=== PATIENT | female | born 1965 | race Caucasian/White ===

== ENCOUNTER 2025-07-10 11:07 | Outpatient (CLI) | payer OTHER, SELFPAY ==
--- OUTSIDE RECORDS SUMMARY | 2025-07-10 11:22 | XMS_ITS | Encounter Summary ---
Author Organization [facility]thcare Address [address] [place] [address] Care Team Providers Care Ob Gyn Physician Assistant Name Role Phone Marine Shoemaker MD Primary Care Provider [phone] [phone] Reason for Visit * Auth/Cert (Routine) Specialty Diagnoses / Procedures Referred By Rafal vail Referred To Contact Diagnoses Umbilical hernia without obstruction and without gangrene Umbilical hernia without obstruction and without gangrene [K42.9] Procedures Robotic assisted laparoscopic repair of umbilical hernia with mesh Referral ID Status Reason Start Date Expiration Date Visits Re quested Visits Authorized [id number] 1 1 Encounter Details Date Type Department Care Team (Late st Contact Info) Description 05/28/2025 Hospital Encounter [facility] [address] [place] [address] Alban Adamson MD [address] [place] [address] Social History Tobacco Use Types Packs/Day Years Used Date Smoking Tobacco: Former Cigarettes 0.5 10 Passive Smoke Exposure: Never Smokeless Tobacco: Never Alcohol Use Standard Drinks/Week Comments Yes 0 (1 standard drink = 0.6 oz pur e alcohol) occasionally PHQ-2 Answer Date Recorded PHQ-2 Score 0 01/06/2021 PRAPARE - Transportation Answer Date Re corded In the past 12 months, has l ack of transportation kept you from medical appointments or from getting medications? No 04/28 In the past 12 months, has l ack of transportation kept you from meetings, work, or from getting things needed for daily living? No 05/14/2025 Comments No Sex and Gender Information Value Date Recorded Sex Assigned at Not on file Legal Sex Female 9:28 PM CDT Gender Identity Not on file Sexual Orientation Not on file documented as of this encounter Plan of Treatment Not on file documented as of this encounter Visit Diagnoses Not on filedocumented in this encounter Care Teams Ob Gyn Physician Assistant Relationship Specialty Start Date End Date Marine Shoemaker MD [address] [place] [address], [address] [address] PCP - General Family Medicine 05/30/24 documented as of this encounter
--- OUTSIDE RECORDS SUMMARY | 2025-07-10 11:22 | XMS_ITS | Encounter Summary ---
Author Organization [facility] Address [address] [place] [address] Care Team Providers Care Supervisor Liquefaction Name Role Phone Marine Shoemaker MD Primary Care Provider [phone] [phone] Reason for Visit * Reason Comments Med Refill Encounter Details Date Type Department Care Team (Late st Contact Info) Description 08/19/2021 Refill [facility] Internal Medicine [address] [place] [address] Keyshawn Loyd MD [address] [facility] [address] [place] [address] Social History Tobacco Use Types Packs/Day Years Used Date Smoking Tobacco: Former Cigarettes 0.5 10 Smokeless Tobacco: Never Alcohol Use Standard Drinks/Week Comments Yes 0 (1 standard drink = 0.6 oz pur e alcohol) occasionally PHQ-2 Answer Date Recorded PHQ-2 Score 0 01/06/2021 Comments No Sex and Gender Information Value Date Recorded Sex Assigned at Not on file Legal Sex Female 9:28 PM CDT Gender Identity Not on file Sexual Orientation Not on file documented as of this encounter Plan of Treatment Not on file documented as of this encounter Visit Diagnoses Not on filedocumented in this encounter Care Teams Supervisor Liquefaction Relationship Specialty Start Date End Date Marine Shoemaker MD [address] [place] [address], [address] [place] [address] PCP - General Family Medicine 05/30/24 documented as of this encounter
--- OUTSIDE RECORDS SUMMARY | 2025-07-10 11:22 | XMS_ITS | Encounter Summary ---
Author Organization [facility] al[facility]care Address [address] [place] [address] Care Team Providers Care Musical String Maker Name Role Phone Marine Shoemaker MD Primary Care Provider [phone] [phone] Reason for Visit * Reason Comments Med Refill Encounter Details Date Type Department Care Team (Late st Contact Info) Description 03/27/2022 Refill [facility] [address] [place] [address] Keyshawn Loyd MD [address] [address] Dyslipidemia (Primary Dx); Anxiety Social History Tobacco Use Types Packs/Day Years [...] documented as of this encounter Visit Diagnoses Diagnosis Dyslipidemia- Primary Other and unspecified hyperlipidemia Anxiety Anxiety state, unspecified documented in this encounter Care Teams Musical String Maker Relationship Specialty Start Date End Date Marine Shoemaker MD [address] [place] [address], [address] [place] [address] PCP - General Family Medicine 05/30/24 documented as of this encounter
--- OUTSIDE RECORDS SUMMARY | 2025-07-10 11:22 | XMS_ITS | Encounter Summary ---
Author Organization [facility] al[facility]care Address [address] [place] [address] Care Team Providers Care Rn Orthopaedic Name Role Phone Marine Shoeamker MD Primary Care Provider [phone] [phone] Reason for Visit * Reason Comments Med Refill Encounter Details Date Type Department Care Team (Late st Contact Info) Description 03/27/2021 Refill [facility] Family Medicine [address] [place] [address] Keyshawn Loyd MD [address] [facility] [address] [place] [address] Social History Tobacco Use Types [...] on filedocumented in this encounter Care Teams Rn Orthopaedic Relationship Specialty Start Date End Date Marine Shoemaker MD [address] [place] [address], [address] [place] [address] PCP - General Family Medicine 05/30/24 documented as of this encounter
--- OUTSIDE RECORDS SUMMARY | 2025-07-10 11:22 | XMS_ITS | Encounter Summary ---
Author Organization [facility] al[facility]care Address [address] [place] [address] Care Team Providers Care Child Psychologist Name Role Phone Marine Shoemaker MD Primary Care Provider [phone] [phone] Encounter Details Date Type Department Care Team (Late st Contact Info) Description 05/25/2017 Orders Only [facility] Internal Medicine [address] [place] [address] Keyshawn Loyd MD [address] [facility] [address] [place] [address] Social History Tobacco Use Types Packs/Day Years Used Date Smoking Tobacco: Former Cigarettes 0.5 10 Alcohol Use Standard Drinks/Week Comments Yes 0 (1 standard drink = 0.6 oz pur e alcohol) occasionally Comments Unknown Sex and Gender Information Value Date Recorded Sex Assigned at Not on file Legal Sex Female 9:28 PM CDT Gender Identity Not on file Sexual Orientation Not on file documented as of this encounter Plan of Treatment Not on file documented as of this encounter Visit Diagnoses Not on filedocumented in this encounter Additional Health Concerns Infection Onset Date Last Indicated Resolved Time R/O COVID-19 12/10/2020 12/10/2020 12/11/2020 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
--- OUTSIDE RECORDS SUMMARY | 2025-07-10 11:22 | XMS_ITS | Encounter Summary ---
Author Organization [facility]care Address [address] [place] [address] Care Team Providers Care Economic Research Analyst Name Role Phone Marine Shoemaker MD Primary Care Provider [phone] [phone] Reason for Visit * Reason Comments Med Refill Encounter Details Date Type Department Care Team (Late st Contact Info) Description 01/08/2020 Refill [facility] Internal Medicine [address] [place] [address] Keyshawn Loyd MD [address] [facility] [address] [place] [address] Social History Tobacco Use Types Packs/Day Years Used Date Smoking Tobacco: Former Cigarettes 0.5 10 Smokeless Tobacco: Never Alcohol Use Standard Drinks/Week Comments Yes 0 (1 standard drink = 0.6 oz pur e alcohol) occasionally Comments No Sex and Gender Information Value [...] COVID-19 12/10/2020 12/10/2020 12/11/2020 11:4 6 AM 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
--- OUTSIDE RECORDS SUMMARY | 2025-07-10 11:22 | XMS_ITS | Clinical Summary ---
Author Organization [facility] Address [address] [place] [address] Care Team Providers Care Event Designer Name Role Phone Marine Shoemaker MD Primary Care Provider Marcio Coats MD Unavailable Allergies No known active allergies Medications Zepbound 15 mg/0.5 mL pen injectorIndication s:Wt Loss Mgmt, Pt with BMI 27-29 & Wt-Related Comorbidity Inject 0.5 mL (15 mg total) as directed once a week Tuesday03/16/20 25 Active venlafaxine XR (EFFEXOR-XR) 75 mg 24 hr capsuleIndications :Anxiety with Depression Take 1 capsule (75 mg total) by mouth daily before breakfast Active propranoloL (INDERAL) 40 mg tabletIndications: hypertension Take 10 mg by mouth 2 (two) times a day Active Vagifem 10 mcg tabletIndications: Atrophic Vaginitis associated with Menopause Insert 1 tablet (10 mcg total) into the vagina 2 (two) times a week Tuesday/ y 04/25/20 25 Active ipratropium (ATROVENT) 21 mcg (0.03 %) nasal spray Administer 1-2 sprays into each nostril 3 (three) times a day 180 mL 11 05/13/20 25 026 Active Additional Information Patient taking differently:1-2 spray each nostril 3 times daily,Indications: Chronic Non-Allergic Rhinitis, Informant: Self, Reported on 06/26/2025 multivitamin tabletIndications: Vitamin Deficiency Prevention Take 1 tablet by mouth daily before breakfast Active herbal drugs tablet Take 1 tablet by mouth 2 (two) times a day Viviscal BID, hair growth Active tretinoin (RETIN-A) 0.05 % creamIndications:A cne Vulgaris Apply 1 Application topically nightly Active hydroquinone 4 % cream Apply 1 Application topically as needed for irritation (skin health) Active sodium chloride (OCEAN) 0.65 % nasal spray Administer 2 sprays into each nostril 4 (four) times a day as needed for congestion 50 mL 06/26/20 25 Active HYDROcodone-acetam inophen (NORCO) 5-325 mg per tabletIndications: Pain Take 1 tablet by mouth every 6 (six) hours as needed for pain 6 tablet 06/28/20 25 Active fenofibrate (TRICOR) 54 mg tablet Take 1 tablet (54 mg total) by mouth daily before breakfast 08/31/20 24 Discontinu ed(Therapy completed) HYDROcodone-acetam inophen (NORCO) 5-325 mg per tablet TAKE 1 TABLET BY MOUTH EVERY 6 HOURS NEEDED FOR MODERATE PAIN FOR UP TO 3 DAYS 02/24/20 25 025 Discontinu ed(Therapy completed) naproxen (NAPROSYN) 500 mg tablet TAKE 1 TABLET BY MOUTH IN THE MORNING AND 1 IN THE EVENING WITH MEALS FOR 10 DAYS 02/24/20 25 025 Discontinu ed(Therapy completed) ondansetron ODT (ZOFRAN-ODT) 4 mg disintegrating tablet DISSOLVE 1 TABLET IN MOUTH EVERY 8 HOURS NEEDED FOR NAUSEA AND VOMITING UP TO 7 DAYS 02/24/20 25 025 Discontinu ed(Therapy completed) HYDROcodone-acetam inophen (NORCO) 5-325 mg per tabletIndications: Pain Take 1 tablet by mouth every 6 (six) hours as needed for pain 12 tablet 06/26/20 25 025 Discontinu ed(Reorder ) cefadroxil (DURICEF) 500 mg capsule Take 1 capsule (500 mg total) by mouth 2 (two) times a day for 3 days 6 capsule 06/26/20 25 Active Problems Problem Noted Date Diagnosed Date Encounter for cosmetic surgery 06/26/2025 History of colonic polyps 05/13/2025 Hyperlipidemia, unspecified 05/13/2025 Deviated nasal septum 04/01/2025 Nasal turbinate hypertrophy 04/01/2025 Internal nasal valve collapse, static 04/01/2025 External nasal valve collapse, static 04/01/2025 Maxillary sinusitis 01/28/2025 Abdominal wall mass of right flank 09/06/2023 Prediabetes 09/06/2023 Other specified diseases of intestine 04/18/2023 Polyp of colon 04/18/2023 Elevated fasting glucose 02/22/2023 Primary insomnia 10/05/2022 Dyslipidemia 12/25/2019 Essential hypertension 12/25/2019 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 07/20/2017 Duodenitis without bleeding 07/20/2017 Epigastric pain 07/20/2017 Benign neoplasm of cecum 06/28/2017 Benign neoplasm of descending colon 06/28/2017 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 06/28/2017 Rectal polyp 06/28/2017 Second degree hemorrhoids 06/28/2017 Chronic bilateral low back pain without sciatica 05/24/2017 Encounters Date Type Department Care Team Description 07/02/2025 2:40 PM CDT Office Visit [facility] ENT [address] [place] [address] [address] [address] Zuleyma Zeng MD 06/28/2025 Telephone [facility] ENT [address] [place] [address] Office [address] [address] Zuleyma Zeng MD 06/26/2025 8:30 AM CDT - 06/26/2025 12:25 PM CDT Surgery [facility] [address] [place] [address] Zuleyma Zeng MD SEPTOPLASTY [[id number] (CPT )] 06/26/2025 8:26 AM CDT Anesthesia Event [facility] [address] [place] [address] Da So MD Wilkens, Kelly Ann, NP 06/26/2025 6:24 AM CDT - 06/26/2025 3:23 PM CDT Hospital Encounter [facility] [address] [place] [address] Zuleyma Zeng MD External nasal valve collapse, static (Primary Dx); Internal nasal valve collapse, static; Deviated nasal septum; Nasal turbinate hypertrophy; Encounter for cosmetic surgery Discharge Disposition: Discharge to home or self care 06/25/2025 Telephone [facility] ENT [address] [facility] Medical Office Building [address] [place] [address] Zuleyma Zeng MD 05/13/2025 3:20 PM CDT Office Visit [facility] ENT [address] [facility] Medical Office Building [address] [place] [address] Maya Ward MD Nasal obstruction (Primary Dx); Chronic rhinitis; Periodontal disease; Mucous retention cyst of skin 05/13/2025 2:00 PM CDT Office Visit [facility] Otolaryngology [address] [place] [address], [address] [place] [address] Zuleyma Zeng MD Nasal obstruction (Primary Dx) 05/09/2025 12:23 PM CDT - 05/09/2025 11:59 PM CDT Hospital Encounter [facility] [address] [place] [address] Discharge Disposition: Discharge to home or self care 05/09/2025 12:21 PM CDT - 05/09/2025 11:59 PM CDT Hospital Encounter [facility] [address] [place] [address] Discharge Disposition: Discharge to home or self care from Last 3 Months Immunizations Immunization Administration Dates Next Due Influenza, Quadrivalent, Rec ombinant, Egg Free, Preservative Free, Intramuscular 09/09/2023,09/13/2022,09/16/2020 Influenza, Quadrivalent, Spl it, Preservative Free, Intramuscular 09/09/2021 Tdap 09/13/2022 ZOSTER Recombinant 03/16/2023,10/05/2022 Surgical History Surgery Date Site/Laterality Comments COLONOSCOPY ENDOMETRIAL ABLATION W/ NOVASURE 11/28/2018 - 11/27/2019 BONE TUMOR EXCISION 11/28/2001 - 11/27/2002 tibia NASAL SEPTUM SURGERY 06/26/2025 Face/N/A Procedure: SEPTOPLASTY; Surgeon: Zuleyma Zeng MD; Location: [facility] OR POD 4; Service: Otolaryngology; Laterality: N/A; REPAIR NASAL VALVE 06/26/2025 Nose/N/A Procedure: REPAIR NASAL VALVE; Surgeon: Zuleyma Zeng MD; Location: [facility] OR POD 4; Service: Otolaryngology; Laterality: N/A; TURBINATE RESECTION 06/26/2025 Face/N/A Procedure: REDUCTION INFERIOR TURBINATE.; Surgeon: Zuleyma Zeng MD; Location: [facility] OR POD 4; Service: Otolaryngology; Laterality: N/A; RHINOPLASTY 06/26/2025 Face/N/A Procedure: RHINOPLASTY.; Surgeon: Zuleyma Zeng MD; Location: [facility] OR POD 4; Service: Otolaryngology; Laterality: N/A; SINUS SURGERY June 26, 2025 Medical History Medical History Date Comments Depression Hypertension Sinusitis May 2023 Family History Medical History Relation Name Comments Diabetes Father Jacinto Faulkner Hypertension Father Jacinto Faulkner Cancer Mother Lacy Faulkner Migraines Mother Lacy Faulkner Anesthesia problems Neg Hx Relation Name Status Comments Father Jacinto Faulkner Mother Lacy Faulkner Social History Tobacco Use Types Packs/Day Years Used Date Smoking Tobacco: Former Cigarettes Q uit: 2022 Smokeless Tobacco: Never Tobacco Cessation:Counseling Given: Not Answered AUDIT-C Answer Date Recorded Q1: How often do you have a drink containing alc ohol? 2-4 times a month 06/20/2025 Q2: How many drinks containi ng alcohol do you have on a typical day when you are drinking? 1 or 2 06/20/2025 Q3: How often do you have si x or more drinks on one occasion? Never 06/20/2025 Personal Safety Answer Date Recorded Have you ever been in or are you currently in a harmful physical or emotional relationship or is someone making you feel afraid or unsafe? 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 Gender Identity Female 06/19/2025 9:34 AM CDT Sexual Orientation Not on file Obstetrics History Last Filed Vital Signs Vital Sign Reading Time Taken Comments Blood Pressure 114/81 06/26/2025 2:40 PM CDT Pulse 82 06/26/2025 2:45 PM CDT Temperature 36.5 C (97.7 F) 06/26/2025 1:05 PM CDT Respiratory Rate 13 06/26/2025 2:45 PM CDT Oxygen Saturation 93% 06/26/2025 2:45 PM CDT Inhaled Oxygen Concentration - - Weight 59 kg (130 lb) 06/26/2025 6:39 AM CDT Height 167.6 cm (5' 6) 06/26/2025 6:39 AM CDT Body Mass Index 20.98 06/26/2025 6:39 AM CDT Plan of Treatment Health Maintenance Due Date Last Done Comments Breast Cancer Screening-Mammogram 1964 Cervical Cancer Screening 1964 Colon Cancer Screening-Colonoscopy 1964 Depression Screening 1964 Hepatitis C Screening 1964 Hepatitis B Screening 1982 Regular Well Visit/Exam 18-64 1982 Covid-19 Vaccine ( season) 2024 09/09/2023, 09/13/2022, 09/13/2022, Additional history exists Influenza Vaccine (#1) 2025 , 09/13/2022, 09/09/2021, Additional history exists DTaP/Tdap/Td Vaccine (2 - Td or Tdap) 09/13/2032 09/13/2022 Zoster Vaccine Completed 03/16/2023, 10/05/2022 Pneumococcal vaccine <65 Aged Out No longer eligible based on patient's age to complete this topic Procedures Procedure Name Priority Date/Time Associated Diagnosis Comments ANESTHESIA INTUBATION Routine 06/26/2025 9:10 AM CDT RHINOPLASTY. 06/26/2025 8:30 AM CDT Deviated nasal septum Nasal turbinate hypertrophy Internal nasal valve collapse, static External nasal valve collapse, static Case Notes 7/2 - Waiting for WIT. NB7/1 - Case msg advisign LING blocks are full, wanting to use WIT? NB7/1 - MISSING DPC. EMAIL SENT. NB 05/02 - Approval per Dr Adamson via email to schedule prior to WIT policy. Waiting for Ward panel add. NB AZ SUBMUCOUS RESCJ INFERIOR TURBINATE PRTL/COMPL 06/26/2025 8:30 AM CDT Deviated nasal septum Nasal turbinate hypertrophy Internal nasal valve collapse, static External nasal valve collapse, static Case Notes 7/2 - Waiting for WIT. NB7/1 - Case msg advisign LING blocks are full, wanting to use WIT? NB7/1 - MISSING DPC. EMAIL SENT. NB 64 - Approval per Dr Adamson via email to schedule prior to WIT policy. Waiting for Ward panel add. NB REPAIR NASAL VALVE. 06/26/2025 8:30 AM CDT Deviated nasal septum Nasal turbinate hypertrophy Internal nasal valve collapse, static External nasal valve collapse, static Case Notes 7/2 - Waiting for WIT. NB7/1 - Case msg advisign LING blocks are full, wanting to use WIT? NB7/1 - MISSING DPC. EMAIL SENT. NB 5 - Approval per Dr Adamson via email to schedule prior to WIT policy. Waiting for Ward panel add. NB AZ SEPTOPLASTY/SUBMUC OUS RESECJ W/WO CARTILAGE GRF 06/26/2025 8:30 AM CDT Deviated nasal septum Nasal turbinate hypertrophy Internal nasal valve collapse, static External nasal valve collapse, static Case Notes 7/2 - Waiting for WIT. NB7/1 - Case msg advisign LING blocks are full, wanting to use WIT? NB7/1 - MISSING DPC. EMAIL SENT. NB 05/02 - Approval per Dr Adamson via email to schedule prior to WIT policy. Waiting for Ward panel add. NB NEURO MR OUTSIDE REFERENCE Routine 05/09/2025 12:[address] OUTSIDE REFERENCE Routine 05/09/2025 12:21 PM CDT from Last 3 Months Results * Airway (06/26/2025 9:10 AM CDT) Narrative Brenda Hunt MD - 06/26/2025 9:10 AM CDT Brenda Hunt MD 06/26/2025 9:12 AM Airway Patient location: OR Urgency: elective Indications for airway management: anesthesia Difficult airway: no Staff: Placed by: Anesthesiologist: Da So MD Emergent airway documentation: Risks and benefits discussed: yes Consent obtained: yes Consent given by: patient Airway prep: Preoxygenated: yes Patient position: sniffing Mask difficulty assessment: 1 - vent by mask Spontaneous ventilation during airway: absent Sedation level during airway: GA Final airway details: Final airway type: endotracheal airway Tube type: ETT ETT size: 7.0 mm Cuffed: yes Technique used for successful ETT placement: direct laryngoscopy Devices/Methods used in placement: stylet and cricoid pressure Insertion site: oral Blade type: Cheo Blade size: 3 Cormack-Lehane (direct): grade IIa - partial view of glottis Cuff inflated with: air ETT to gums: 22 cm Placement verified by: auscultation and CO2 detection Airway secured with: silk tape Number of attempts: 1 Da So MD ANESTHESIA ORDERABLES Final Result * Neuro MR Outside Reference (05/09/2025 12:23 PM CDT) Impressions [facility] - 05/09/2025 12:23 PM CDT These images are for Reference purposes only and have not been reviewed by [facility] Radiology. There will be no report generated by a [facility] Radiologist. Narrative [facility] - 05/09/2025 12:23 PM CDT EXAMINATION: Images For Reference Purposes Only Maya Ward MD IMG MRI PROCEDURES Final Re sult [facility] * Neuro CT Outside Reference (05/09/2025 12:21 PM CDT) Impressions [facility] - 05/09/2025 12:21 PM CDT These images are for Reference purposes only and have not been reviewed by [facility] Radiology. There will be no report generated by a [facility] Radiologist. Narrative [facility] - 05/09/2025 12:21 PM CDT EXAMINATION: Images For Reference Purposes Only us Maya Ward MD IMG CT PROCEDURES Final Res ult [facility] from Last 3 Months Insurance [facility] [id number] [facility] [id number] Member Subscriber Plan / Payer (Ef fective 2021-Present) Name:Leal Kaylynn Member ID:[id number] Relation to Subscriber:Self Name:Kaylynn Leal Subscriber ID:[id number] Payer ID:[id number] Type:[employer] HMO/PPO Address: [employer] [address] [place] [address] Care Teams Event Designer Relationship Specialty Start Date End Date Marine Shoemaker MD [address] [place] [address] PCP - General Family Practice 05/13/25 Marcio Coats MD [address] [place] [address] Referring Physician Otolaryngology 05/13/25
--- OUTSIDE RECORDS SUMMARY | 2025-07-10 11:22 | XMS_ITS | Encounter Summary ---
Author Organization [facility] Address [address] [place] [address] Care Team Providers Care Retail Administrative Assistant Name Role Phone Marine Shoemaker MD Primary Care Provider [phone] [phone] Reason for Visit * Reason Comments Med Refill Encounter Details Date Type Department Care Team (Late st Contact Info) Description 12/30/2019 Refill [facility] Internal Medicine [address] [place] [address] Keyshawn Loyd MD [address] [facility] [address] [place] [address] Social History Tobacco Use Types [...] COVID-19 12/10/2020 12/10/2020 12/11/2020 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
--- OUTSIDE RECORDS SUMMARY | 2025-07-10 11:22 | XMS_ITS | Encounter Summary ---
Author Organization [facility] Address [address] [place] [address] Phone Care Team Providers Care Director Of Undergraduate Admissions Name Role Phone Marine Shoemaker MD Primary Care Provider Marcio Coats MD Unavailable [phone] Encounter Details Date Type Department Care Team (Late st Contact Info) Description 06/28/2025 Telephone [facility] [address] [facility] Medical Office Building [address] [place] [address] Zuleyma Zeng MD [address] [place] [address] Social History Tobacco Use Types Packs/Day Years Used Date Smoking Tobacco: Former Cigarettes Q uit: 2022 Smokeless Tobacco: Never AUDIT-C Answer Date Recorded Q1: How often [...] on file 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 I emphasized that these are very normal side effects from the surgery that she had (pain, swelling, bruising). Asked that if she had any signs of infection such as fever or chills, to reach out to us. documented in this encounter Plan of Treatment Not on file documented as of this encounter Visit Diagnoses Diagnosis Deviated nasal septum- Primary Chronic maxillary sinusitis Nasal obstruction Other diseases of nasal cavity and sinuses documented in this encounter Discontinued Medications Medication Sig Discontinue Reason Start Date End Da te HYDROcodone-acetaminophe n (NORCO) 5-325 mg per tabletIndications:Pain Take 1 tablet by mouth every 6 (six) hours as needed for pain Reorder 06/26/2025 06/28/2025 documented as of this encounter Care Teams Director Of Undergraduate Admissions Relationship Specialty Start Date End Date [facility] Phoenix[facility]ine Sloan MD [address] [place] [address] PCP - General Family Practice 05/13/25 Marcio Coats MD [address] [place] [address] Referring Physician Otolaryngology 05/13/25 documented as of this encounter
--- OUTSIDE RECORDS SUMMARY | 2025-07-10 11:22 | XMS_ITS | Encounter Summary ---
Author Organization [facility] Address [address] [place] [address] Care Team Providers Care Forest Ranger Technician Name Role Phone Marine Shoemaker MD Primary Care Provider [phone] [phone] Reason for Visit * Reason Comments Med Refill Encounter Details Date Type Department Care Team (Late st Contact Info) Description 12/19/2018 Refill [facility] Internal Medicine [address] [place] [address] Keyshawn Loyd MD [facility] [facility] [address] [place] [address] Social History Tobacco Use Types [...] COVID-19 12/10/2020 12/10/2020 12/11/2020 11:4 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
--- OUTSIDE RECORDS SUMMARY | 2025-07-10 11:22 | XMS_ITS | Encounter Summary ---
Author Organization [facility] Address [address] [place] [address] Care Team Providers Care Shoe Salesman Name Role Phone Marine Shoemaker MD Primary Care Provider [phone] Reason for Visit * Reason Comments Med Refill Encounter Details Date Type Department Care Team (Late st Contact Info) Description 05/07/2021 Refill [facility] Internal Medicine [address] [place] [address] Keyshawn Loyd MD [address] [facility] [address] [place] [address] Social History Tobacco Use Types [...] on filedocumented in this encounter Care Teams Shoe Salesman Relationship Specialty Start Date End Date Marine Shoemaker MD [address] [place] [address], [address] [place] [address] PCP - General Family Medicine 05/30/24 documented as of this encounter
--- OUTSIDE RECORDS SUMMARY | 2025-07-10 11:22 | XMS_ITS | Encounter Summary ---
Author Organization [facility] Address [address] [place] [address] Care Team Providers Care Fur Blower Operator Name Role Phone Marine Shoemaker MD Primary Care Provider [phone] Reason for Visit * Reason Comments Med Refill Encounter Details Date Type Department Care Team (Late st Contact Info) Description 02/20/2022 Refill [facility] Group Internal Medicine [address] [place] [address] Keyshawn Loyd MD [address] [place] [address] Essential hypertension (Primary Dx) Social History Tobacco Use Types Packs/Day Years [...] as of this encounter Visit Diagnoses Diagnosis Essential hypertension- Primary Unspecified essential hypertension documented in this encounter Care Teams Fur Blower Operator Relationship Specialty Start Date End Date Marine Shoemaker MD [address] [place] [address], [address] [place] [address] PCP - General Family Medicine 7/3/24 documented as of this encounter
--- OUTSIDE RECORDS SUMMARY | 2025-07-10 11:22 | XMS_ITS | Encounter Summary ---
Author Organization [facility] Address [address] [place] [address] Care Team Providers Care Plastic Cutter Name Role Phone Marine Shoemaker MD Primary Care Provider [phone] [phone] Reason for Visit * Reason Comments Med Refill Encounter Details Date Type Department Care Team (Late st Contact Info) Description 10/13/2022 Refill [facility] Internal Medicine [address] [place] [address] Keyshawn Loyd MD [address] [facility] [address] [place] [address] Essential hypertension Social History Tobacco Use Types Packs/Day Years [...] of this encounter Visit Diagnoses Diagnosis Essential hypertension Unspecified essential hypertension documented in this encounter Care Teams Plastic Cutter Relationship Specialty Start Date End Date Marine Shoemaker MD [address] [place] [address], [address] [place] [address] PCP - General Family Medicine 05/30/24 documented as of this encounter
--- OUTSIDE RECORDS SUMMARY | 2025-07-10 11:22 | XMS_ITS | Encounter Summary ---
Author Organization [facility] Address [address] [place] [address] Care Team Providers Care Junior Web Developer Name Role Phone Marine Shoemaker MD Primary Care Provider [phone] [phone] Reason for Visit * Reason Comments Med Refill Encounter Details Date Type Department Care Team (Late st Contact Info) Description 05/29/2024 Refill [facility] Internal Medicine [address] [place] [address] Keyshawn Loyd MD [address] [facility] [address] [place] [address] Essential hypertension Social History Tobacco [...] on file documented as of this encounter Miscellaneous Notes * Telephone Encounter - Gisela Mccall LPN - 05/30/2024 8:12 AM CDT Spoke with patient. She is now seeing Marine Sloan with [facility] Medicine as PCP. Chart updated with this info. Refill request denied and sent back to pharmacy. documented in this encounter Plan of Treatment Not on file documented as of this encounter Visit Diagnoses Diagnosis Essential hypertension Unspecified essential hypertension documented in this encounter Care Teams Junior Web Developer Relationship Specialty Start Date End Date Marine Shoemaker MD [address] [place] [address], [facility] [address] [place] [address] PCP - General Family Medicine 05/30/24 documented as of this encounter
--- OUTSIDE RECORDS SUMMARY | 2025-07-10 11:22 | XMS_ITS | Encounter Summary ---
Author Organization [facility] Address [address] [place] [address] Care Team Providers Care Centralized Traffic Control Operator Name Role Phone Marine Shoemaker MD Primary Care Provider [phone] [phone] Reason for Visit * Reason Comments Med Refill Encounter Details Date Type Department Care Team (Late st Contact Info) Description 07/20/2022 Refill [facility] Internal Medicine [address] [place] [address] Keyshawn Loyd MD [address] [place] [address] Essential hypertension Social History Tobacco [...] hypertension documented in this encounter Care Teams Centralized Traffic Control Operator Relationship Specialty Start Date End Date Marine Shoemaker MD [address] [place] [address], [address] [place] [address] PCP - General Family Medicine 05/30/24 documented as of this encounter
--- OUTSIDE RECORDS SUMMARY | 2025-07-10 11:22 | XMS_ITS | Encounter Summary ---
Author Organization [facility] Address [address] [place] [address] Care Team Providers Care Family Practice Md Name Role Phone Marine Shoemaker MD Primary Care Provider [phone] [phone] Reason for Visit * Reason Comments Med Refill Encounter Details Date Type Department Care Team (Late st Contact Info) Description 11/19/2022 Refill [facility] Internal Medicine [address] [place] [address] Keyshawn Loyd MD [address] [place] [address] Essential hypertension Social History Tobacco [...] hypertension documented in this encounter Care Teams Family Practice Md Relationship Specialty Start Date End Date Marine Shoemaker MD [address] [place] [address], [address] [place] [address] PCP - General Family Medicine 05/30/24 documented as of this encounter
--- OUTSIDE RECORDS SUMMARY | 2025-07-10 11:22 | XMS_ITS | Encounter Summary ---
Author Organization [facility] Address [address] [place] [address] Care Team Providers Care Software Packager Name Role Phone Marine Shoemaker MD Primary Care Provider [phone] [phone] Reason for Visit * Reason Comments Med Refill Encounter Details Date Type Department Care Team (Late st Contact Info) Description 03/26/2022 Refill [facility] Medical [facility] Internal Medicine [address] [place] [address] Keyshawn Loyd MD [address] [place] [address] Essential hypertension Social History Tobacco [...] hypertension documented in this encounter Care Teams Software Packager Relationship Specialty Start Date End Date Marine Shoemaker MD [address] [place] [address], [address] [place] [address] PCP - General Family Medicine 05/30/24 documented as of this encounter
--- OUTSIDE RECORDS SUMMARY | 2025-07-10 11:22 | XMS_ITS | Encounter Summary ---
Author Organization [facility] Address [address] [place] [address] Care Team Providers Care Improvement Nurse Name Role Phone Marine Shoemaker MD Primary Care Provider [phone] [phone] Reason for Visit * Reason Comments Med Refill Encounter Details Date Type Department Care Team (Late st Contact Info) Description 07/08/2024 Refill [facility] [address] [place] [address] Kana Conway MD [address] [place] [address] Dyslipidemia; Anxiety Social History Tobacco Use Types Packs/Day [...] as of this encounter Visit Diagnoses Diagnosis Dyslipidemia Other and unspecified hyperlipidemia Anxiety Anxiety state, unspecified documented in this encounter Care Teams Improvement Nurse Relationship Specialty Start Date End Date Marine Shoemaker MD [address] [place] [address], [address] [place] [address] PCP - General Family Medicine 05/30/24 documented as of this encounter
--- OUTSIDE RECORDS SUMMARY | 2025-07-10 11:22 | XMS_ITS | Encounter Summary ---
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
--- OUTSIDE RECORDS SUMMARY | 2025-07-10 11:22 | XMS_ITS | Clinical Summary ---
Author Organization [facility] althcare Address [address] [place] [address] Care Team Providers Care Maxillofacial Prosthodontist Name Role Phone Marine Shoemaker MD Primary Care Provider [phone] [phone] Allergies No known active allergies Medications venlafaxine XR (EFFEXOR-XR) 75 mg 24 hr capsuleIndicatio ns:Anxiety TAKE 1 CAPSULE BY MOUTH ONCE DAILY WITH FOOD 90 capsule 4 Active Additional Information Patient taking differently: 75 mg oral Daily with breakfast, Reported on 05/14/2025 therapeutic multivitamin (THERAGRAN) 400 mcg tablet Take 1 tablet by mouth daily Active ipratropium (ATROVENT) 21 mcg (0.03 %) nasal spray Administer 1-2 sprays into affected nostril(s) 3 (three) times a day 5 05/13/20 26 Active tirzepatide, weight loss, (Zepbound) 15 mg/0.5 mL Pen Injection Inject 15 mg under the skin every 7 days Tuesdays PAT HOLD 7 days prior to surgery Active UNABLE TO FIND Take 1 tablet by mouth 2 (two) times a day Med Name: VIVISCAL Active propranoloL (INDERAL) 10 mg tablet Take 1 tablet (10 mg total) by mouth 2 (two) times a day Active Active Problems Problem Noted Date Diagnosed Date Maxillary sinusitis 01/28/2025 Deviated nasal septum 01/28/2025 Abdominal wall mass of right flank 09/06/2023 Assessment & Plan (09/06/2023 5:03 PM CDT): Advised most likely lipoma but due to size will get US to better characterize. To call if doesn't get an imaging scheduling call in next 7-10 business days. Prediabetes 09/06/2023 Assessment & Plan (09/06/2023 5:05 PM CDT): Discussed beneficial behavioral changes; I advised strongly to stop drinking sugared beverages. She is going to try to exercise more and eat fewer carbs also. Will follow up with repeat labs in 6 months. Elevated fasting glucose 02/22/2023 Assessment & Plan (02/22/2023 4:50 PM CDT): Check a1c; explained meaning of a1c. Follow up depends on lab results Screening for colon cancer 02/22/2023 Assessment & Plan (02/22/2023 4:49 PM CDT): Due for colorectal cancer screening, referred to dr. Lucio/ Advised to call back if doesn't get referral scheduling call in 7-10 business days. Primary insomnia 10/05/2022 Assessment & Plan (02/22/2023 4:50 PM CDT): States sleeping well, continue trazodone Assessment & Plan (10/05/2022 4:42 PM WALLPAPER INSTALLER): Try trazodone; can titrate dose up to 150mg at bedtime. Let me know if not helpful, or any untoward effects. Dyslipidemia 12/25/2019 Assessment & Plan (02/22/2023 4:50 PM CDT): Labs reviewed, well controlled, continue triglide Assessment & Plan (10/05/2022 4:43 PM WALLPAPER INSTALLER): Check FLP, cont fenofibrate unless otherwise indicated Assessment & Plan (01/06/2021 12:00 PM WALLPAPER INSTALLER): Check FLP/continue fibrate unless otherwise indicated Assessment & Plan (12/25/2019 5:16 PM WALLPAPER INSTALLER): Check lipids Essential hypertension 12/25/2019 Assessment & Plan (09/06/2023 5:04 PM CDT): Advised above goal currently. Is going to try to exercise and lose some weight and stop drinking soda/eat more healthily and I advised that these things have a good chance of improving BP. will also monitor BP 2-3x/week over next 5 months and will discuss at RTC at that time. Assessment & Plan (10/05/2022 4:42 PM WALLPAPER INSTALLER): Generally controlled, check lytes and continue hydrochlorothiazide unless otherwise indicated Assessment & Plan (01/06/2021 12:00 PM WALLPAPER INSTALLER): Hypertension is unchanged. Continue current treatment regimen. Blood pressure will be reassessed at the next regular appointment. Labs as ordered fasting in the next couple of weeks/will call with results Assessment & Plan (12/25/2019 5:16 PM WALLPAPER INSTALLER): Diastolic borderline. Pt to check BP twice weekly over next month, To call if BP at home is >140 systolic or >90 diastolic consistently. Cont current meds. Check labs. Chronic bilateral low back pain without sciatica 05/24/2017 Assessment & Plan (06/13/2017 4:56 PM CDT): Reports mild relief with aleve. Will start naproxen 500mg bid today. Instructed to STOP Aleve and NO NSAIDs while taking naproxen. Discussed obtaining imaging at this time with patient either US or CT abd/pelvis with IV contrast. However, the patient states she has appointment with her gm mobile next week. Instructed her to discuss with Dr. Bui and will defer to him as to the type of imaging to obtain. Pain is LLQ into pelvic area and is reproduceable with palpation. Education; if develops a fever >100.4 or symptoms worsen; then return to office. Verbalizes understanding of instructions. Will follow up in two weeks; unless symptoms resolved. Assessment & Plan (05/24/2017 4:10 PM CDT): Will address abd pain first and then consider imaging Resolved Problems Problem Noted Date Diagnosed Date Resolved Date Hypercalcemia 02/22/2023 09/06/2023 Assessment & Plan (02/22/2023 4:49 PM CDT): Check BMP after good hydration this week, if still elevated will DC MVI and recheck BMP again. Herpes zoster without complication 02/15/2018 12/25/2019 Assessment & Plan (02/16/2018 1:45 PM CDT): Start famciclovir 500mg three times daily. Use tylenol 500mg every 4-6 hours as needed for pain. Education; if symptoms worsen, monitor for bacterial infection (purulent drainage), or fever greater than 100.4; then return to clinic. Avoid females and people who may be immune compromised. Verbalizes understanding of instructions. Follow up as needed. Viral upper respiratory tract infection 08/29/2017 12/25/2019 Assessment & Plan (08/30/2017 8:59 AM CDT): Your symptoms are likely due to a viral infection. Will employ watchful waiting and symptom management. May take pseudoephedrine 60mg every six hours as needed for sinus congestion. Limit use to five days. May use ibuprofen 200mg three times daily for mild to moderate pain. Limit use to five days. May use Robitussin DM for night time cough. Education; If fever > 100.4, symptoms worsening by Tuesday; then call office and will treat with antibiotic at that time. Verbalizes understanding of instructions. Follow up as needed Lower abdominal pain 05/24/2017 020 Assessment & Plan (05/24/2017 4:34 PM CDT): Will check UA, unfortunately pt urinated just before appointment so unable to do dipstick in office. Gave printed order to take to [facility] later this afternoon; instructed staff to communicate result to me at my [place] office as soon as available, likely tomorrow morning. If clean, will get CT abd/pelvis. Advised pt to proceed to ED if acutely worsens Encounters Date Type Department Care Team Description 05/30/2025 [facility]phone [facility] General [facility] [address] [place] [phone] Alban Adamson MD 05/28/2025 Hospital Encounter [facility] [address] [place] [address] Alban Adamson MD 05/14/2025 Telephone [facility] General Surgery [address] [place] [phone] Alban Adamson MD 05/06/2025 Results Follow-Up [facility] Otolaryngology [address] [place] [address] landmark sinus 05/02/2025 9:30 AM CDT - 05/02/2025 11:59 PM CDT Hospital Encounter [address] [phone] Unspecified lump in the right breast, overlapping quadrants Discharge Disposition: Home self care 05/02/2025 9:00 AM CDT - 05/02/2025 11:59 PM CDT Hospital Encounter [address] [phone] Unspecified lump in the right breast, overlapping quadrants Discharge Disposition: Home self care 04/30/2025 8:36 AM CDT - 04/30/2025 11:59 PM CDT Hospital Encounter [address] [phone] Marcio Coats MD Deviated nasal septum; Chronic maxillary sinusitis Discharge Disposition: Home self care 04/26/2025 Telephone [facility] General Surgery [address] [place] [phone] Alban Adamson MD 04/19/2025 Prep for Case [facility] General Surgery [address] [place] [phone] Alban Adamson MD Umbilical hernia without obstruction and without gangrene (Primary Dx) 04/19/2025 Telephone [facility] General Surgery [address] [facility] [address] [place] [address] Alban Adamson MD from Last 3 Months Immunizations Immunization Administration Dates Next Due Influenza (IM) Quad PF 09/09/2021 Influenza TIV (IM) 09/13/2022 Influenza, Recombinant Quad Pf 09/13/2022,2019,09/16/2020 Pfizer Covid-19, Mrna, Lnp-s , Pf, 30mcg/0.3ml Dose 09/13/2022,09/13/2022 Tdap 09/13/2022 Zoster Subunit 03/16/2023,10/05/2022 Family History Medical History Relation Name Comments Heart failure Father Hypertension Father Breast cancer Mother Cancer Mother Cancer Mother's Sister Relation Name Status Comments Father Mother breast cancer a ge 42 Mother's Sister Social History Tobacco Use Types Packs/Day Years Used Date Smoking Tobacco: Former Cigarettes 0.5 10 Passive Smoke Exposure: Never Smokeless Tobacco: Never Tobacco Cessation:Counseling Given: Not Answered Alcohol Use Standard Drinks/Week Comments Yes 0 [...] on file Sexual Orientation Not on file Last Filed Vital Signs Vital Sign Reading Time Taken Comments Blood Pressure 120/80 04/03/2025 10:38 AM CDT Pulse 72 04/03/2025 10:38 AM CDT Temperature 36.3 C (97.3 F) 04/03/2025 10:38 AM CDT Respiratory Rate 20 01/29/2025 9:05 AM WALLPAPER INSTALLER Oxygen Saturation 98% 04/03/2025 10:38 AM CDT Inhaled Oxygen Concentration - - Weight 60.3 kg (133 lb) 05/14/2025 10:58 AM CDT Height 167.6 cm (5' 6) 05/14/2025 10:58 AM CDT Body Mass Index 21.47 05/14/2025 10:58 AM CDT Plan of Treatment Health Maintenance Due Date Last Done Comments CT Colonography 1964 FIT-DNA 1964 FIT 1964 FOBT 1964 Sigmoidoscopy 1964 Depression Screening 1976 AMB Pneumococcal 50+ yrs (1 of 1 - PCV) 2014 COVID-19 Vaccine (2023- season) 2024 09/09/2023, 09/13/2022, 09/13/2022, Additional history exists Influenza Vaccine (#1) 2025 , 09/13/2022, 09/09/2021, Additional history exists Pap Smear 09/27/2025 09/27/2022 Mammogram 05/02/2026 05/02/2025, 07/30, 08/25/2023, Additional history exists Colonoscopy 04/18/2028 04/18/2023, 08/0 11/2016, 06/28/2017 Colorectal Cancer Screening 04/18/2028 DTaP,Tdap,and Td Vaccines (2 - Td or Tdap) 09/13/2032 09/13/2022 RSV Vaccines and 60 Years or Older (1 - 1-dose 75+ series) 2039 Zoster Series Vaccines Completed 03/16/2023, 2021 HIB Vaccines Aged Out No longer eligi ble based on patient's age to complete this topic HPV Vaccines Aged Out No longer eligi ble based on patient's age to complete this topic Hepatitis A Vaccines Aged Out No long er eligible based on patient's age to complete this topic Hepatitis B Vaccines Aged Out No long er eligible based on patient's age to complete this topic IPV Vaccines Aged Out No longer eligi ble based on patient's age to complete this topic MMR Vaccines Discontinued Meningococcal ACWY Vaccine Aged Out N o longer eligible based on patient's age to complete this topic Meningococcal B Vaccine Aged Out No l onger eligible based on patient's age to complete this topic RSV Vaccines <20 Months Aged Out No l onger eligible based on patient's age to complete this topic Varicella Vaccines Discontinued Procedures Procedure Name Priority Date/Time Associated Diagnosis Comments BI US BREAST RIGHT LIMITED Routine 05/02/2025 9:47 AM CDT Unspecified lump in the right breast, overlapping quadrants BI DIAGNOSTIC RIGHT Routine 05/02/2025 9 :27 AM CDT Unspecified lump in the right breast, overlapping quadrants CT LANDMARK SINUS Routine 04/30/2025 8:5 6 AM CDT Deviated nasal septum Chronic maxillary sinusitis from Last 3 Months Results * Breast Img ultrasound breast right limited (05/02/2025 9:47 AM CDT) Anatomical Region Laterality Modality Breast Right Ultrasound Narrative 05/02/2025 9:55 AM CDT EXAMINATION(S) PERFORMED Patient is seen for Right digital diagnostic mammogram Breast Img ultrasound breast right limited. INDICATIONS Kaylynn Leal is a 60 y.o. female and is being seen for Unspecified lump in the right breast, overlapping quadrants. History of breast cancer in Mother. COMPARISON TO PREVIOUS EXAMINATION(S) Compared to: 08/24/2024 Bilateral digital screening mammogram, 08/25/2023 Bilateral digital screening mammogram, 08/23/2022 Bilateral digital screening mammogram, and 03/23/2021 Bilateral digital screening mammogram FINDINGS Right There are scattered areas of fibroglandular density. There is no evidence of suspicious masses, calcifications, or other abnormal findings in the right breast on diagnostic mammography. Targeted ultrasound of the 12:00 right breast 13 cm from the nipple shows benign tissue. IMPRESSION Right breast assessment: Benign. Routine Screening Mammogram in 1 Yr is recommended. Overall BI-RADS category: 2 - Benign Paola Hua NP IMG BI PROCEDURES Final Result * Right digital diagnostic mammogram (05/02/2025 9:27 AM CDT) Anatomical Region Laterality Modality Breast Right Mammography Narrative 05/02/2025 9:55 AM CDT EXAMINATION(S) PERFORMED Patient is seen for Right digital diagnostic mammogram Breast Img ultrasound breast right limited. INDICATIONS Kaylynn Leal is a 60 y.o. female and is being seen for Unspecified lump in the right breast, overlapping quadrants. History of breast cancer in Mother. COMPARISON TO PREVIOUS EXAMINATION(S) Compared to: 08/24/2024 Bilateral digital screening mammogram, 08/25/2023 Bilateral digital screening mammogram, 08/23/2022 Bilateral digital screening mammogram, and 03/23/2021 Bilateral digital screening mammogram FINDINGS Right There are scattered areas of fibroglandular density. There is no evidence of suspicious masses, calcifications, or other abnormal findings in the right breast on diagnostic mammography. Targeted ultrasound of the 12:00 right breast 13 cm from the nipple shows benign tissue. IMPRESSION Right breast assessment: Benign. Routine Screening Mammogram in 1 Yr is recommended. Overall BI-RADS category: 2 - Benign Paola Hua NP IMG BI PROCEDURES Final Result * CT landmark sinus (04/30/2025 8:56 AM CDT) Anatomical Region Laterality Modality Head Computed Tomogra phy Narrative 05/06/2025 8:55 AM CDT EXAM: SINUS CT WITHOUT CONTRAST History: Sinonasal obstruction Technique: CT acquisition of the sinuses without IV contrast administration. CT dose reduction techniques performed: yes. Coronal and sagittal reconstructions were performed. Comparison: none Findings: Sphenoid sinuses clear and sphenoid ostia/sphenoethmoidal recesses are patent. Ethmoid air cells are clear. Frontal sinuses are clear and frontal recesses are patent. Small mucous retention cyst along the floor of the left maxillary sinus. Otherwise maxillary sinuses are clear and ostiomeatal units are patent. No skull base dehiscense. Orbits and globes are intact. Mild nasal septal deviation. Impression: Small mucus retention cyst left maxillary sinus. Otherwise the paranasal sinuses are clear. The sinonasal drainage pathways are patent. All CT scans are performed using dose optimization techniques as appropriate to the performed exam and include at least one of the following: Automated exposure control, adjustment of the mA and/or kV according to size, and the use of iterative reconstruction technique. Electronically signed by: PAM ORR D.O. Date: 05/06/2025 Time: 08:45 Procedure Note Pam Orr DO - 05/06/2025 EXAM: SINUS CT WITHOUT CONTRAST History: Sinonasal obstruction Technique: CT acquisition of the sinuses without IV contrastadministration. CT dose reduction techniques performed: yes. Coronal andsagittal reconstructions were performed. Comparison: none Findings: Sphenoid sinuses clear and sphenoid ostia/sphenoethmoidal recesses arepatent. Ethmoid air cells are clear. Frontal sinuses are clear and frontalrecesses are patent. Small mucous retention cyst along the floor of theleft maxillary sinus. Otherwise maxillary sinuses are clear andostiomeatal units are patent. No skull base dehiscense. Orbits and globesare intact. Mild nasal septal deviation. Impression: Small mucus retention cyst left maxillary sinus. Otherwise the paranasalsinuses are clear. The sinonasal drainage pathways are patent. All CT scans are performed using dose optimization techniques asappropriate to the performed exam and include at least one of the following: Automated exposure control, adjustment ofthe mA and/or kV according to size, and the use of iterativereconstruction technique. Electronically signed by: PAM ORR D.O. Date: 05/06/2025 Time: 08:45 Marcio Coats MD IMG CT PROCEDURES Final Result from Last [address] [facility] Care Teams Maxillofacial Prosthodontist Relationship Specialty Start Date End Date Marine Shoemaker MD [address] [place] [address], [facility] [address] [place] [address] PCP - General Family Medicine 05/30/24
--- OUTSIDE RECORDS SUMMARY | 2025-07-10 11:22 | XMS_ITS | Encounter Summary ---
Author Organization [facility] althcare Address [address] [place] [address] Care Team Providers Care Leather Patcher Name Role Phone Marine Shoemaker MD Primary Care Provider [phone] [phone] Encounter Details Date Type Department Care Team (Late st Contact Info) Description 04/22/2022 Orders Only REPLACED BY [facility] Family Medicine [address] [place] [address] Jackie Angeles LPN Social History Tobacco Use Types Packs/Day Years [...] on filedocumented in this encounter Care Teams Leather Patcher Relationship Specialty Start Date End Date Marine Shoemaker MD [address] [place] [address], [facility] [address] [place], [place] [id number] PCP - General Family Medicine 05/30/24 documented as of this encounter
[2025-07-10 12:07] LABS: Hematocrit 38.4 % (37.0-47.0); Hemoglobin 12.4 g/dL (12.0-15.0); Mean Corpuscular HGB Conc 32.3 g/dl (32-36); Mean Corpuscular Hemoglobin 31.0 pg (26-34); Mean Corpuscular Volume 96.0 fl (80-100); Platelet Count Result 251 k/mm3 (150-375); Red Blood Count 4.00 M/mm3 (4.2-5.4); White Blood Count 8.4 K/mm3 (4.5-10.0)
[2025-07-10 12:30] LABS: Iron 59 ug/dL (37-170)
[2025-07-10 12:31] LABS: Albumin Level 3.8 g/dL (3.5-5.1); Anion Gap 6 mmol/L (4-12); Blood Urea Nitrogen 18 mg/dL (7-17); Calcium 9.4 mg/dL (8.4-10.2); Carbon Dioxide 26 mmol/L (22-30); Chloride 108 mmol/L (98-107); Estimated Glomerular Filt Rate > 60; Glucose 91 mg/dL (65-110); Potassium 3.9 mmol/L (3.4-5.0); Sodium 140 mmol/L (137-145)
[2025-07-10 12:39] LABS: Prealbumin 20.3 mg/dL (17.6-36.0)
[2025-07-10 13:13] LABS: Hemoglobin A1C 4.6 % (<5.7)
[2025-07-14 18:07] LABS: Vit. B1, Whole Blood 142.3 nmol/L (66.5-200.0)
== END 2025-07-10 11:08 | disposition home or self-care (01) ==
LOC: ANHLAB 11:13
PROVIDERS: Visit Provider Surgery Plastic and Reconstructive Surgery
DX: R63.4 Abnormal weight loss (principal)
CPT/HCPCS: 36415; 80048; 82040; 83036; 83540; 84134; 84425; 85027

== ENCOUNTER 2025-10-10 02:11 | Day surgery (SDC) | payer OTHER, SELFPAY ==
[2025-09-30 16:39] VITALS: BMI 22.6
--- NOTE | 2025-09-30 17:23 | SUR.PREOP ---
[facility] has started construction of its new state of the art ER which will open Spring 2026. With this, we anticipate parking may be a challenge for some our surgical patients and families. Parking spaces are limited but are available for all Surgical, obstetrics, and ER patients sharing this lot. If you arrive and find you are having a hard time finding a parking space, please note that we understand the challenges, please drive around the hospital and park near Hospital Entrance 1. When you enter this entrance, you can ask a volunteer to direct or take you back to the surgical waiting area to check in. We appreciate everyone?s understanding of these expected challenges while we build for your future. Report to the Outpatient Waiting Room, entrance under the green pavilion located off [address], at time _6AM_ on date _10/10/25__. Planned Procedure Time: __730AM__.? Time changes happen often and if your time is changed the preop area will call you the afternoon before. - You and your visitor will be asked to self-screen and do not enter if you have any COVID symptoms. Please call surgeon if you need to reschedule. - A mask is optional within the hospital at this time. Patients may have clear liquids (water, carbonated beverages, clear teas, apple juice) until 3 hours prior to surgery with a maximum of 20 ounces. - No food from midnight until time of surgery and no smoking, or chewing tobacco (or any form of nicotine). No chewing gum, candy or mints. - Infants may have breast milk until 4 hours before surgery, formula 6 hours prior to surgery. - Children will be allowed to drink immediately following surgery.? If applicable, please bring a bottle or sippy cup to assist with drinking. Juice, water, soda, and popsicles are readily available.? For infants on formula, please bring formula the day of surgery.? Pacifiers are allowed. Take only the following medications with a SIP of water on the morning of surgery: _Venlafaxine_ DO NOT STOP ANY OF YOUR OTHER PRESCRIPTION MEDICATIONS PRIOR TO SURGERY EXCEPT THE FOLLOWING Hold all vitamins and supplements for 3 days per anesthesiologist. Medications to discontinue per physician _Pt has been holding the zepbound for 6wks per surgeons instructions._ Date to take last dose__10/06/25__ Please no make-up, nail wolof, hairspray, perfume, deodorant, or body powder the day of surgery.? No jewelry (including any body piercings) or valuables the day of surgery, leave them at home.? Please take a shower or bath the night before, or the morning of, surgery with an antibacterial soap.? Wear comfortable, loose fitting clothing.? Children are encouraged to wear pajamas. - Jewelry must be removed prior to entering the operating room.? Rings and piercings that are not removed may be cut off. - The hospital will not accept responsibility for valuables.? - Please leave all valuables, including medications, at home the day of surgery. If you are going home after surgery, a licensed train driver must drive you home.? - NO public transportation without another adult if you receive anesthesia. - We recommend that an adult stay with you for 24 hours following discharge. - We also recommend that you do not drive, make important decision, drink alcoholic beverages, or take any drugs that were not prescribed by your health care provider for at least 24 hours after your discharge time. For Pediatric surgeries, we recommend two adults accompany the child home. Follow any additional instructions given to you from your surgeon. Telephone instructions given to _Kaylynn__and asked if any additional questions and then verbalized understanding. Patient advised to call surgeon office or pre surgery nurse liaison [phone] if any additional questions.
[2025-10-10] VITALS (13 sets, daily range): BP systolic 122–156; BP diastolic 71–93; PULSE 72–114; RESP 12–20; TEMP 36.4–36.9; O2SAT 94–100
--- OUTSIDE RECORDS SUMMARY | 2025-10-10 02:14 | XMS_ITS | Encounter Summary ---
Author Organization [facility] althcare Address [address] [place] [address] Care Team Providers Care Medical Diagnostic Radiographer Name Role Phone Marine Shoemaker MD Primary Care Provider [phone] [phone] Reason for Visit * Reason Comments Med Refill Encounter Details Date Type Department Care Team (Late st Contact Info) Description 07/20/2022 Refill [facility] Internal Medicine [address] [place] [address] Keyshawn Loyd MD [address] [facility] [address] [place] [address] Essential hypertension Social History Tobacco [...] hypertension documented in this encounter Care Teams Medical Diagnostic Radiographer Relationship Specialty Start Date End Date Marine Shoemaker MD [address] [place] [address], [address] [place] [address] PCP - General Family Medicine 05/30/24 documented as of this encounter
--- OUTSIDE RECORDS SUMMARY | 2025-10-10 02:14 | XMS_ITS | Encounter Summary ---
Author Organization [facility] althcare Address [address] [place] [address] Care Team Providers Care Jewel Setter Name Role Phone Marine Shoemaker MD Primary Care Provider [phone] [phone] Reason for Visit * Reason Comments Med Refill Encounter Details Date Type Department Care Team (Late st Contact Info) Description 03/27/2021 Refill [facility] Family Medicine [address] [place] [address] Keyshawn Loyd MD [address] [facility] [address] [place] [address] Social History Tobacco Use Types [...] on filedocumented in this encounter Care Teams Jewel Setter Relationship Specialty Start Date End Date Marine Shoemaker MD [address] [place] [address], [address] [place] [address] PCP - General Family Medicine 05/30/24 documented as of this encounter
--- OUTSIDE RECORDS SUMMARY | 2025-10-10 02:14 | XMS_ITS | Encounter Summary ---
Author Organization [facility]care Address [address] [place] [address] Care Team Providers Care Technical Training Manager Name Role Phone Marine Shoemaker MD Primary Care Provider +1 -[phone] Reason for Visit * Reason Comments Med Refill Encounter Details Date Type Department Care Team (Late st Contact Info) Description 08/19/2021 Refill [facility] Internal Medicine [address] [place] [address] Keyshawn Loyd MD [address] [facility] [address] [place] [address] Social History Tobacco Use Types [...] on filedocumented in this encounter Care Teams Technical Training Manager Relationship Specialty Start Date End Date Marine Shoemaker MD [address] [place] [address], [address] [place] [address] PCP - General Family Medicine 05/30/24 documented as of this encounter
--- OUTSIDE RECORDS SUMMARY | 2025-10-10 02:14 | XMS_ITS | Encounter Summary ---
Author Organization [facility] althcare Address [address] [place] [address] Care Team Providers Care Printing Supervisor Name Role Phone Marine Shoemaker MD Primary Care Provider +1 -[phone] Reason for Visit * Reason Comments Med Refill Encounter Details Date Type Department Care Team (Late st Contact Info) Description 03/26/2022 Refill [facility] Internal Medicine [address] [place] [address] Keyshawn Loyd MD [address] [facility] [address] [place] [address] Essential hypertension Social History Tobacco [...] hypertension documented in this encounter Care Teams Printing Supervisor Relationship Specialty Start Date End Date Marine Shoemaker MD [address] [place] [address], [address] [place] [address] PCP - General Family Medicine 05/30/24 documented as of this encounter
--- OUTSIDE RECORDS SUMMARY | 2025-10-10 02:14 | XMS_ITS | Encounter Summary ---
Author Organization [facility] Address [address] [place] [address] Care Team Providers Care Exterminator Helper Termite Name Role Phone Marine Shoemaker MD Primary Care Provider +1 -[phone] Reason for Visit * Reason Comments Med Refill Encounter Details Date Type Department Care Team (Late st Contact Info) Description 05/07/2021 Refill [facility] Medical [facility] Internal Medicine [address] [place] [address] Keyshawn Loyd MD [address] [facility] [address] [place] [address] Social History Tobacco Use Types [...] on filedocumented in this encounter Care Teams Exterminator Helper Termite Relationship Specialty Start Date End Date Marine Shoemaker MD [address] [place] [address], [address] [place] [address] PCP - General Family Medicine 05/30/24 documented as of this encounter
--- OUTSIDE RECORDS SUMMARY | 2025-10-10 02:14 | XMS_ITS | Encounter Summary ---
Author Organization [facility]care Address [address] [place] [address] Care Team Providers Care Sba Underwriter Name Role Phone Marine Shoemaker MD Primary Care Provider +1 -[phone] Reason for Visit * Reason Comments Med Refill Encounter Details Date Type Department Care Team (Late st Contact Info) Description 10/13/2022 Refill [facility] Medical [facility] Internal Medicine [address] [place] [address] Keyshawn Loyd MD [address] [facility] [address] [place] [address] Essential hypertension Social History Tobacco [...] hypertension documented in this encounter Care Teams Sba Underwriter Relationship Specialty Start Date End Date Marine Shoemaker MD [address] [place] [address], [address] [place] [address] PCP - General Family Medicine 05/30/24 documented as of this encounter
--- OUTSIDE RECORDS SUMMARY | 2025-10-10 02:14 | XMS_ITS | Encounter Summary ---
Author Organization [facility]care Address [address] [place] [address] Care Team Providers Care General Production Laborer Name Role Phone Marine Shoemaker MD Primary Care Provider +1 -[phone] Reason for Visit * Reason Comments Med Refill Encounter Details Date Type Department Care Team (Late st Contact Info) Description 07/08/2024 Refill [facility] [address] [place] [address] Kana Conway MD [address] [place] [id number] Dyslipidemia; Anxiety Social History Tobacco Use [...] unspecified documented in this encounter Care Teams General Production Laborer Relationship Specialty Start Date End Date Marine Shoemaker MD [address] [place] [address], [address] [place] [address] PCP - General Family Medicine 05/30/24 documented as of this encounter
--- OUTSIDE RECORDS SUMMARY | 2025-10-10 02:14 | XMS_ITS | Encounter Summary ---
Author Organization [facility] Address [address] [place] [address] Care Team Providers Care Logging Assistant Name Role Phone Marine Shoemaker MD Primary Care Provider +1 -[phone] Encounter Details Date Type Department Care Team (Late st Contact Info) Description 04/22/2022 Orders Only [facility] Medical Group Family Medicine [address] [place] [address] Jackie [place] LPN Social History [...] on filedocumented in this encounter Care Teams Logging Assistant Relationship Specialty Start Date End Date Marine Shoemaker MD [address] [place] [address], [facility] [address] [place], [place] [address] PCP - General Family Medicine 05/30/24 documented as of this encounter
--- OUTSIDE RECORDS SUMMARY | 2025-10-10 02:14 | XMS_ITS | Clinical Summary ---
Author Organization [facility] althcare Address [address] [place] [address] Care Team Providers Care Injury Prevention Coordinator Name Role Phone Marine Shoemaker MD Primary Care Provider +1 -[phone] Allergies No known active allergies Medications venlafaxine [...] trazodone Assessment & Plan (10/05/2022 4:42 PM CIRCULAR HEAD SAW OPERATOR): Try trazodone; can titrate dose up to 150mg at bedtime. Let me know if not helpful, or any untoward effects. Dyslipidemia 12/25/2019 Assessment & Plan (02/22/2023 4:50 PM CDT): Labs reviewed, well controlled, continue triglide Assessment & Plan (10/05/2022 4:43 PM CIRCULAR HEAD SAW OPERATOR): Check FLP, cont fenofibrate unless otherwise indicated Assessment & Plan (01/06/2021 12:00 PM CIRCULAR HEAD SAW OPERATOR): Check FLP/continue fibrate unless otherwise indicated Assessment & Plan (12/25/2019 5:16 PM CIRCULAR HEAD SAW OPERATOR): Check lipids Essential hypertension 12/25/2019 Assessment & [...] time. Assessment & Plan (10/05/2022 4:42 PM CIRCULAR HEAD SAW OPERATOR): Generally controlled, check lytes and continue hydrochlorothiazide unless otherwise indicated Assessment & Plan (01/06/2021 12:00 PM CIRCULAR HEAD SAW OPERATOR): Hypertension is unchanged. Continue current treatment regimen. Blood pressure will be reassessed at the next regular appointment. Labs as ordered fasting in the next couple of weeks/will call with results Assessment & Plan (12/25/2019 5:16 PM CIRCULAR HEAD SAW OPERATOR): Diastolic borderline. 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 Instructed her to discuss with [...] to communicate result to me at my [place] office as soon as available, likely tomorrow morning. If clean, will get CT abd/pelvis. Advised pt to proceed to ED if acutely worsens Encounters Date Type Department Care Team Description 10/02/2025 2:15 PM CIRCULAR HEAD SAW OPERATOR - 10/02/2025 11:59 PM CIRCULAR HEAD SAW OPERATOR Hospital Encounter [facility] [address] [place] [id number] Hypertension, unspecified type Discharge Disposition: Home self care 09/17/2025 1:45 PM CDT - 09/17/2025 11:59 PM CDT Hospital Encounter [facility] [address] [facility] [address] [place] [phone] Encounter for screening mammogram for malignant neoplasm of breast Discharge Disposition: Home self care from Last 3 Months Immunizations Immunization Administration Dates Next Due Influenza (IM) Quad PF 09/09/2021 Influenza TIV (IM) 09/13/2022 Influenza, Recombinant Quad Pf 09/13/2022,2019,09/16/2020 Pfizer Covid-19, Mrna, Lnp-s , Pf, 30mcg/0.3ml Dose 09/13/2022,09/13/2022 Tdap 09/13/2022 Zoster Subunit 03/16/2023,10/05/2022 Family History Medical History Relation Name Comments Heart failure Father Hypertension Father Breast cancer Maternal Great-Grandmother Breast cancer Mother Cancer Mother Cancer Mother's Sister Relation Name Status Comments Father Maternal Great-Grandmother Alive Mother breast cancer a ge 42 Mother's [...] CDT Respiratory Rate 20 01/29/2025 9:05 AM CIRCULAR HEAD SAW OPERATOR Oxygen Saturation 98% 04/03/2025 10:38 AM CDT Inhaled Oxygen Concentration - - Weight 60.3 kg (133 lb) 09/17/2025 2:17 PM CDT Height 167.6 cm (5' 6) 09/17/2025 2:17 PM CDT Body Mass Index 21.47 09/17/2025 2:17 PM CDT Plan of Treatment Health Maintenance Due Date Last Done Comments CT Colonography 1964 FIT-DNA 1964 FIT 1965 FOBT 1965 Sigmoidoscopy 1964 Depression Screening 1976 AMB Pneumococcal 50+ yrs (1 of 1 - PCV) 2014 COVID-19 Vaccine ( season) 2025 09/09/2023, 09/13/2022, 09/13/2022, Additional history exists Influenza Vaccine (#1) 2025 , 09/13/2022, 09/09/2021, Additional history exists Pap Smear 09/27/2025 09/27/2022 Mammogram 09/17/2026 09/17/2025, 06/0 03/2025, 08/24/2024, Additional history exists Colonoscopy 04/18/2028 04/18/2023, 08/0 [...] Procedure Name Priority Date/Time Associated Diagnosis Comments EKG Routine 10/02/2025 2:51 PM CIRCULAR HEAD SAW OPERATOR Hypertension, unspecified type BI SCREENING BILATERAL Routine 09/17/2025 2:14 PM CDT Encounter for screening mammogram for malignant neoplasm of breast from Last 3 Months Results * EKG (10/02/2025 2:51 PM CIRCULAR HEAD SAW OPERATOR) 10/02/2025 2:43 PM CIRCULAR HEAD SAW OPERATOR Narrative [facility] - 10/02/2025 3:19 PM CIRCULAR HEAD SAW OPERATOR [place] [address] Test Date: 2025-10-02 Pat Name: [facility] Department: [facility] Room: Gender: Female 3D Designer: ERIKA : 1965 Requested By: ELÍAS HESTER Order Number: [id number] Reading MD: Vicki Huddleston Measurements Intervals [place] Rate: 62 P: 15 NV: 152 QRS: 37 QRSD: 76 T: 46 QT: 404 QTc: 410 Interpretive Statements Normal sinus rhythm Normal ECG Electronically Signed On 10-02-2025 15:18:14 CIRCULAR HEAD SAW OPERATOR by Vicki Huddleston Procedure Note Vicki Huddleston MD - 10/02/[address] [address] Test Date: 2025-10-02 Pat Name: [facility] Department: [facility] Room: Gender: Female 3D Designer: ERIKA : 1965 Requested By: ELÍAS HESTER Order Number: [id number] Reading MD: Vicki Huddleston Measurements Intervals [place] Rate: 62 P: 15 NV: 152 QRS: 37 QRSD: 76 T: 46 QT: 404 QTc: 410 Interpretive Statements Normal sinus rhythm Normal ECG Electronically Signed On 10-02-2025 15:18:14 CIRCULAR HEAD SAW OPERATOR by Vicki Huddleston us Elías Hester MD, SI CV EKG Final Result [facility] CV [facility] * Bilateral digital screening mammogram (09/17/2025 2:14 PM CDT) Anatomical Region Laterality Modality Breast Bilateral Mammography Narrative 09/17/2025 3:25 PM CDT EXAMINATION(S) PERFORMED Patient is seen for Bilateral digital screening mammogram. Study was evaluated with a computer aided detection (CAD) system and performed with 2D/3D mammography. INDICATIONS Kaylynn Leal is a 60 y.o. female and is being seen for Encounter for screening mammogram for malignant neoplasm of breast. History of breast cancer in Mother, Maternal Great-Grandmother. COMPARISON TO PREVIOUS EXAMINATION(S) Compared to: 05/02/2025 Right digital diagnostic mammogram, 05/02/2025 Breast Img ultrasound breast right limited, and 08/24/2024 Bilateral digital screening mammogram FINDINGS There are scattered areas of fibroglandular density. There are benign breast calcifications present. There has been no interval change. Right There is no evidence of suspicious masses, calcifications, or other abnormal findings in the right breast. Left There is no evidence of suspicious masses, calcifications, or other abnormal findings in the left breast. IMPRESSION Right breast assessment: Benign. Left breast assessment: Benign. Routine Screening Mammogram in 1 Yr is recommended for both breasts. Overall BI-RADS category: 2 - Benign us Marine Shoemaker MD IMG BI PROCEDURES Final R esult from Last 3 Months Insurance Care Teams Injury Prevention Coordinator Relationship Specialty Start Date End Date Marine Shoemaker MD [address] [place] [address], [facility] [address] [place] [address] PCP - General Family Medicine 05/30/24
--- OUTSIDE RECORDS SUMMARY | 2025-10-10 02:14 | XMS_ITS | Encounter Summary ---
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
--- OUTSIDE RECORDS SUMMARY | 2025-10-10 02:14 | XMS_ITS | Encounter Summary ---
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
--- OUTSIDE RECORDS SUMMARY | 2025-10-10 02:14 | XMS_ITS | Encounter Summary ---
Author Organization [facility] al[facility]care Address [address] [place] [address] Care Team Providers Care Instrumentation Technician Name Role Phone Marine Shoemaker MD Primary Care Provider +1 -[phone] Reason for Visit * Reason Comments Med Refill Encounter Details Date Type Department Care Team (Late st Contact Info) Description 05/29/2024 Refill [facility] Medical Group Internal Medicine [address] [place] [address] Keyshawn Loyd MD [address] [facility] [address] [place] [address] Essential hypertension Social History Tobacco [...] She is now seeing Marine Sloan with [facility] Medicine as PCP. Chart updated with this info. Refill request denied and sent back to pharmacy. documented in this encounter Plan of Treatment Not on file documented as of this encounter Visit Diagnoses Diagnosis Essential hypertension Unspecified essential hypertension documented in this encounter Care Teams Instrumentation Technician Relationship Specialty Start Date End Date Marine Shoemaker MD [address] [place] [address], [facility] [address] [place] [address] PCP - General Family Medicine 05/30/24 documented as of this encounter
--- OUTSIDE RECORDS SUMMARY | 2025-10-10 02:14 | XMS_ITS | Encounter Summary ---
Author Organization [facility] al[facility]care Address [address] [place] [address] Care Team Providers Care Grinding Machine Tender Name Role Phone Marine Shoemaker MD Primary Care Provider +1 -[phone] Reason for Visit * Reason Comments Med Refill Encounter Details Date Type Department Care Team (Late st Contact Info) Description 11/19/2022 Refill [facility] Medical Group Internal Medicine [address] [place] [address] Keyshawn Loyd MD [address] [facility] [address] [place] [address] Essential hypertension Social History Tobacco [...] hypertension documented in this encounter Care Teams Grinding Machine Tender Relationship Specialty Start Date End Date Marine Shoemaker MD [address] [place] [address], [address] [place] [address] PCP - General Family Medicine 05/30/24 documented as of this encounter
--- OUTSIDE RECORDS SUMMARY | 2025-10-10 02:14 | XMS_ITS | Encounter Summary ---
Author Organization [facility] althcare Address [address] [place] [address] Care Team Providers Care Machine Shop Lead Man Name Role Phone Marine Shoemaker MD Primary Care Provider +1 -[phone] Reason for Visit * Reason Comments Med Refill Encounter Details Date Type Department Care Team (Late st Contact Info) Description 03/27/2022 Refill [facility] [address] [place] [address] Keyshawn Loyd MD [address] [address] Dyslipidemia (Primary Dx); Anxiety Social [...] unspecified documented in this encounter Care Teams Machine Shop Lead Man Relationship Specialty Start Date End Date Marine Shoemaker MD [address] [place] [address], [address] [place] [address] PCP - General Family Medicine 05/30/24 documented as of this encounter
--- OUTSIDE RECORDS SUMMARY | 2025-10-10 02:14 | XMS_ITS | Encounter Summary ---
Author Organization [facility] althcare Address [address] [place] [address] Care Team Providers Care Manager Property Name Role Phone Marine Shoemaker MD Primary Care Provider +1 -[phone] Reason for Visit * Reason Comments Med Refill Encounter Details Date Type Department Care Team (Late st Contact Info) Description 12/19/2018 Refill [facility] Medical Group Internal Medicine [address] [place] [address] Keyshawn Loyd MD [facility] [facility] [address] [place] [address] Social History Tobacco Use Types [...] COVID-19 12/10/2020 12/10/2020 12/11/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 [address] [place] [address] PCP - General Family Medicine 05/30/24 documented as of this encounter
--- OUTSIDE RECORDS SUMMARY | 2025-10-10 02:14 | XMS_ITS | Encounter Summary ---
Author Organization [facility] althcare Address [address] [place] [address] Care Team Providers Care Recruit Instructor Name Role Phone Marine Shoemaker MD Primary Care Provider +1 -[phone] Reason for Visit * Reason Comments Med Refill Encounter Details Date Type Department Care Team (Late st Contact Info) Description 12/30/2019 Refill [facility] Medical Group Internal Medicine [address] [place] [address] Keyshawn Loyd MD [address] [facility] [address] [place] [address] Social History Tobacco Use Types [...] COVID-19 12/10/2020 12/10/2020 12/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
--- OUTSIDE RECORDS SUMMARY | 2025-10-10 02:14 | XMS_ITS | Clinical Summary ---
Author Organization [facility] Address [address] [place] [id number] Care Team Providers Care Extracorporeal Technician Name Role Phone Marine Shoemaker MD Primary Care Provider Marcio Coats MD Unavailable [phone] Allergies No known active allergies Medications Zepbound 15 mg/0.5 mL pen injectorIndicati ons:Wt Loss Mgmt, Pt with BMI 27-29 & Wt-Related Comorbidity Inject 0.5 mL (15 mg total) as directed once a week Tuesday 5 Active venlafaxine XR (EFFEXOR-XR) 75 mg 24 hr capsuleIndicatio ns:Anxiety with Depression Take 1 capsule (75 mg total) by mouth daily before breakfast Active propranoloL (INDERAL) 40 mg tabletIndication s:hypertension Take 10 mg by mouth 2 (two) times a day Active Vagifem 10 mcg tabletIndication s:Atrophic Vaginitis associated with Menopause Insert 1 tablet (10 mcg total) into the vagina 2 (two) times a week Tuesday/ 5 Active ipratropium (ATROVENT) 21 mcg (0.03 %) nasal spray Administer 1-2 sprays into each nostril 3 (three) times a day 180 mL 11 5 05/13/20 26 Active Additional Information Patient taking differently:1-2 spray each nostril 3 times daily,Indications: Chronic Non-Allergic Rhinitis, Informant: Self, Reported on 06/26/2025 multivitamin tabletIndication s:Vitamin Deficiency Prevention Take 1 tablet by mouth daily before breakfast Active herbal drugs tablet Take 1 tablet by mouth 2 (two) times a day Viviscal BID, hair growth Active tretinoin (RETIN-A) 0.05 % creamIndications :Acne Vulgaris Apply 1 Application topically nightly Active hydroquinone 4 % cream Apply 1 Application topically as needed for irritation (skin health) Active sodium chloride (OCEAN) 0.65 % nasal spray Administer 2 sprays into each nostril 4 (four) times a day as needed for congestion 50 mL 5 Active HYDROcodone-acet aminophen (NORCO) 5-325 mg per tabletIndication s:Pain Take 1 tablet by mouth every 6 (six) hours as needed for pain 6 tablet 5 Active Active Problems Problem Noted Date Diagnosed [...] Encounters Date Type Department Care Team Description 07/30/2025 11:00 AM CDT Office Visit [facility] [address] [facility] [address] [place] [address] Zuleyma Zeng MD Nasal obstruction (Primary Dx) from Last 3 Months Immunizations Immunization Administration [...] Procedure: SEPTOPLASTY; Surgeon: Zuleyma Zeng MD; Location: [facility] CAM OR POD 4; Service: Otolaryngology; Laterality: N/A; REPAIR NASAL VALVE 06/26/2025 Nose/N/A Procedure: REPAIR NASAL VALVE; Surgeon: Zuleyma Zeng MD; Location: [facility] CAM OR POD 4; Service: Otolaryngology; Laterality: N/A; TURBINATE RESECTION 06/26/2025 Face/N/A Procedure: REDUCTION INFERIOR TURBINATE.; Surgeon: Zuleyma Zeng MD; Location: [facility] CAM OR POD 4; Service: Otolaryngology; Laterality: N/A; RHINOPLASTY 06/26/2025 Face/N/A Procedure: RHINOPLASTY.; Surgeon: Zuleyma Zeng MD; Location: [facility] CAM OR POD 4; Service: Otolaryngology; Laterality: [...] on file Legal 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 Gender Identity Female 06/19/2025 9:34 AM CDT Sexual Orientation Not on file Last Filed [...] Visit/Exam 18-64 1982 Covid-19 Vaccine ( season) 2025 09/09/2023, 09/13/2022, 09/13/2022, Additional history exists Influenza Vaccine (#1) 2025 , 09/13/2022, 09/09/2021, Additional history exists DTaP/Tdap/Td Vaccine (2 - Td or Tdap) 09/13/2032 09/13/2022 Zoster Vaccine Completed 03/16/2023, 10/05/2022 Pneumococcal vaccine <65 Aged Out No longer eligible based on patient's age to complete this topic Insurance [facility] [id number] [facility] [id number] Care Teams Extracorporeal Technician Relationship Specialty Start Date End Date JoseMarine Sloan MD [address] [place] [address] PCP - General Family Practice 05/13/25 Marcio Coats MD [address] [facility] [place] [address] Referring Physician Otolaryngology 05/13/25
--- OUTSIDE RECORDS SUMMARY | 2025-10-10 02:14 | XMS_ITS | Encounter Summary ---
Author Organization 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
--- OUTSIDE RECORDS SUMMARY | 2025-10-10 02:14 | XMS_ITS | Encounter Summary ---
Author Organization [facility] Address [address] [place] [address] Care Team Providers Care Supervisor Scrap Preparation Name Role Phone Marine Shoemaker MD Primary Care Provider [phone] Reason for Visit * Reason Comments Med Refill Encounter Details Date Type Department Care Team (Late st Contact Info) Description 02/20/2022 Refill [facility] Internal Medicine [address] [place] [address] Keyshawn Loyd MD [address] [place] [place] [address] Essential hypertension (Primary Dx) Social [...] hypertension documented in this encounter Care Teams Supervisor Scrap Preparation Relationship Specialty Start Date End Date Marine Shoemaker MD [address] [place] [address], [address] [place] [address] PCP - General Family Medicine 7/3/24 documented as of this encounter
--- NOTE | 2025-10-10 06:36 | WPDANESEPPF ---
Anes - Initial Pre Proc Eval Procedure: Operation Date: 10/10/25 07:30 Proposed Procedures p Bilateral Breast Augmentation, - Claudio Umaña MD s Bilateral Breast Mastopexy, - Claudio Umaña MD s Abdominoplasty with Liposuction - Claudio Umaña MD Date/Time: 10/10/25 06:36 Surgeon: Claudio Umaña MD Pre Op Diagnosis: breast ptosis, micromastia, skin laxity Patient Data Age: 60 Gender: F Height: 1.68 m Weight: 63.6 kg Allergies Allergy/AdvReac Type Severity Reaction Status Date / Time No Known Allergies Allergy Verified 09/30/25 16:31 Home Medications ?Medication ?Instructions ?Recorded ?Confirmed ?Type estradiol 10 mcg vaginal tablet 10 mcg vaginal 2XW 09/30/25 09/30/25 History (Vagifem) inulin 1.7 gram chewable tablet 2 g PO DAILY 09/30/25 09/30/25 History (Fiber Gummies) lisinopril 2.5 mg tablet 2.5 mg PO DAILY 09/30/25 09/30/25 History multivitamin (Daily Value tablet) 1 tablet PO DAILY 09/30/25 09/30/25 History tirzepatide (weight loss) 15 15 mg subcut WEEKLY 09/30/25 09/30/25 History mg/0.5 mL subcutaneous pen injector (Zepbound) tretinoin (emollient) 0.02 % 1 applic topical 2XW 09/30/25 09/30/25 History topical cream venlafaxine 75 mg capsule,extended 75 mg PO DAILY 09/30/25 09/30/25 History release 24 hr viviscal 1 cap PO BID 09/30/25 09/30/25 History Laboratory Tests 10/10/25 06:21 Cotinine Pending Patient hx anesthesia problems: none Family hx anesthesia problems: none Results Review: All pre-operative results and documents have been reviewed as part of the pre-operative evaluation. [facility] Past Medical History Medical History (Updated 10/09/25 @ 12:27 by Girish Chance DO) Hyperlipidemia Hypertension Social History Social History Years smoked: 5 Smoking status: Former smoker Alcohol intake: current Alcohol use details: 1x/wk Living arrangements: with family Spiritual care concerns: No Anes - Eval Final PreProcedure Day of Procedure 10/10/25 06:36 Patient weight: normal Heart: regular rate and rhythm Lungs: clear to auscultation Airway: Mallampati scale class II Neurological: alert and oriented Last oral intake: >/= 8 hours ASA classification: II Emergent: no Anesthetic plan: proceed Anesthesia type and monitoring: general ETT and standard monitoring Results Review: All pre-operative results and documents have been reviewed as part of the pre-operative evaluation. Informed Consent: The patient's anesthetic plan and its attendant risks and benefits were discussed with the patient/family/POA. Questions were solicited and answers provided to the satisfaction of the patient/family/POA.
--- NOTE | 2025-10-10 07:00 | WPDHPUPDATE1 ---
History and Physical Update Update Date/Time: 10/10/25 07:00 History and Physical has been reviewed, including an updated exam of the patient. There are NO changes in the patient's condition. Risks, benefits, and alternatives have been discussed and questions answered. Patient agrees to proceed with procedure.
[2025-10-10] MEDS: LACTATED RINGERS 1,000 ML 30 ML IV CONT ×3 (07:18→14:07)
[2025-10-10] MEDS: SCOPOLAMINE 1 MG PATCH 1 PATCH TRANSDERM (07:18)
[2025-10-10] MEDS: ceFAZolin 2 GM in SODIUM CHLORIDE 0.9% IV 50 ML 100 ML IVPB (07:34)
[2025-10-10] MEDS: NACL 0.9% IRRIG POUR BOTTLE 900 ML, GENTAMICIN SULFATE INJ 160 MG, ceFAZolin 2 GM, POVI... IRRIGATION (07:34)
[2025-10-10] MEDS: LACTATED RINGERS IRRIG 1,000 ML, LIDOCAINE 1% LOCAL INJ 50 ML, EPINEPHrine HCL INJ 1 MG... INFILTRATE (07:34)
[2025-10-10] MEDS: TRANEXAMIC ACID 1,000MG/ISO100 1,000 MG/100 ML BAG 200 MG IVPB (07:34)
[2025-10-10] MEDS: ceFAZolin 1 GM in SODIUM CHLORIDE 0.9% IV 50 ML 100 ML IVPB (11:30)
[2025-10-10] MEDS: BUPIVACAINE/EPINEPHRINE 0.5% 50 ML VIAL 60 ML INFILTRATE (11:33)
--- NOTE | 2025-10-10 13:54 | W.PM.PROC2 ---
Procedure Note - Detailed Date of Procedure 10/10/25 Pre-op Diagnosis breast ptosis, micromastia, skin laxity Post-op Diagnosis Same Procedure Performed 1. Bilateral augmentation mastopexy 2. Progressive tension abdominoplasty with suction lipectomy Surgeon Claudio Umaña MD Anesthesia General Findings Bilateral Celestina Wyman SoftTouch 520cc Right: REF# [id number] Left: REF# [id number] Tissue removed: 1,288 grams Lipoaspirate: 1,500 cc Description of Procedure They are here today for the above procedures. Previously and again today the risks, benefits, alternatives were discussed in extensive detail. I wanted them to be very realistic about the risks involved as well as expectations. We discussed aftercare and what to monitor for. I was very upfront about the risks of wound breakdown leading to loss of skin, open wounds, and need for additional procedures with permanent abdominal deformity. We discussed DVT/PE risks and management. Made sure answered all of their questions to their satisfaction today and consent was obtained. They were marked in the preoperative holding area with their verification. The patient was taken to the operating room. Anesthesia was provided by anesthesiology. A Maldonado catheter was started. Posterior Placed prone on the operating room table with care taken to protect from injury. Prepped and draped in a standard sterile fashion. A surgical time-out was taken. Stab incisions were made and tumescent solution was infiltrated. Once adequate time was allowed for hemostasis a 5mm basket and 4mm trip cannula were utilized to complete suction lipectomy based on S.A.F.E. technique in multiple planes and passes. Suction lipectomy continued to result based on pre-operative planning, intra-operative observation, and rolling pinch test which were in full agreement. Breast She was prepped and draped in a standard sterile fashion. Tumescent was utilized laterally to provide field block Tegaderm nipple Wu were placed. A 15 blade used to make an incision just superior to the inframammary fold leaving a cusp of de-epithelized tissue at the t junction. Dissection was continued until the chest wall as identified. I incised the pectoralis major along its inferior border and completely released the inferior border leaving the medial border intact. I created a subpectoral pocket in the appropriate dimensions based on our preoperative planning for the implant. I then copiously irrigated with saline solution and verified a strict hemostasis. Next the use a triple antibiotic and Betadine containing solution to irrigate the pocket. I washed my gloves with the triple antibiotic and Betadine solution. We washed the implant immediately upon opening it with this solution and only opened it when we needed it. I used implant funnel and no-touch technique. The implant was introduced into the pocket using the funnel. Having verified positioning of the implant this was closed using 2-0 PDS. I tailor tacked the breast into position. Placed her in a sitting position. Verified the nipple-areolar location based on preoperative planning as well as intraoperative observations and measurements in full agreement. Suction lipectomy was completed laterally with a 4mm trip cannula. This was based on preoperative planning, intraoperative observation, and rolling pinch which was in full agreement. She was placed supine. I de-epithelialized the pedicle. I then removed the inferior central portion of the breast need making sure the implant was well protected. I elevated medial and lateral tissue flaps as well for planned closure. Secured the IMF with 2-0 PDS. I closed along the IMF with 2-0 PDS. Along the vertical with 2-0 PDS. I closed around the areola and the vertical incision with 3-0 Monocryl. 3-0 Stratafix along the IMF. I finally closed everything with running subcuticular 4-0 Monocryl, steri strips periareolar and IMF, Brijjit's along vertical. Abdomen Patient was then placed supine with care taken to protect from injury. I placed the patient in a flexed position to verify the upper and lower markings would reach. I then placed supine. A thorough abdominal examination was completed. Stab incisions were made and tumescent solution infiltrated. Stab incisions were made and tumescent solution was infiltrated. Once adequate time was allowed for hemostasis a 5mm basket and 4mm trip cannula were utilized to complete suction lipectomy based on S.A.F.E. technique in multiple planes and passes. Suction lipectomy continued to result based on pre-operative planning, intra-operative observation, and rolling pinch test which were in full agreement. A 10 blade was used to make the upper incision. I continued dissection down to the level of fascia. Elevated just what was necessary for repair of the diastasis. I then again flexed the bed to verify the upper skin flap would reach the lower markings without tension. Once verified I placed her supine once again and a 10 blade used to make the lower incision. I elevated up to level the umbilicus and left the umbilicus intact on a well-vascularized stalk. The intervening tissue was removed. A 2 mm blunt cannula with 0.5% bupivacaine was injected deep to the fascia bilaterally. I plicated the diastasis recti using 0 PDO Stratafix barbed suture. This was in 2 separate layers using 2 separate sutures as well. I also repaired lateral to the rectus using two layers of 0 PDO Stratafix. The patient was flexed and starting from superior to inferior began plication using 2-0 Vicryl to obliterate all space in a standard progressive tension fashion. At the umbilicus I marked out the location of the skin and inset this with 3-0 Monocryl and 4-0 Vicryl. I continued the remainder of the plication using 2-0 Vicryl until I reached my lower planned scar line. I trimmed any excess skin of the upper flap making sure this was a tension-free closure. 15 Eulogio drain was placed. I then approximated using a 3 point suture with 2-0 Vicryl followed by 2-0 PDO Stratafix, 3-0 Stratafix ,running subcuticular 4-0 Monocryl, and tissue glue. Fluffs, abdominal binder, surgical bra were placed. The patient was transferred to the bed in a flexed position. Awoken and taken to the PACU without difficulty. All instrument and sponge counts were correct at the end of the case. Estimated Blood Loss 100 Drains Yes (15 Eulogio) Packing No Pathology None sent Complications No immediate complications Condition Stable Disposition PACU
[2025-10-10] MEDS: fentaNYL CITRATE INJ (*CRX) 100 MCG/2 ML VIAL 25 MCG IV PUSH (14:59)
[2025-10-10] MEDS: oxyCODONE HCL (*CRX) 5 MG TAB IR PO (16:00)
== END 2025-10-10 17:00 | disposition home or self-care (01) ==
PROVIDERS: Visit Provider Surgery Plastic and Reconstructive Surgery
PROC: (CPT 19316; principal; 2025-10-10 07:30)
PROC: (CPT 19316; 2025-10-10 07:30)
PROC: (CPT 19316; 2025-10-10 07:30)
DX: Z41.1 Encounter for cosmetic surgery (principal); L57.4 Cutis laxa senilis; N64.81 Ptosis of breast; N64.82 Hypoplasia of breast; E78.5 Hyperlipidemia, unspecified; I10 Essential (primary) hypertension; F32.A Depression, unspecified; Z79.85 Long-term (current) use of injectable non-insulin antidiabetic drugs; Z87.891 Personal history of nicotine dependence
CPT/HCPCS: 19316; 19325; 15830; 15847; 15877; 80307; J0690; A9270; J0166; J1100; J1171; J1200; J1580; J2003; J2250; J2371; J2405; J2704; J3010; J3290; J7120